=== PATIENT | female | born 1990 | race Caucasian/White ===

== ENCOUNTER 2022-09-17 09:24 | Observation (INO) ==
[2022-09-17 10:11] LABS: Basophils # (auto) 0.07 K/uL (0-0.2); Basophils % (auto) 0.8 %; Eosinophils % (auto) 1.2 %; Hemoglobin 13.9 g/dl (12.0-16.0); Immature Granulocytes % (auto) 1.2 %; Lymphocytes # (auto) 2.61 K/uL (1.2-3.4); Lymphocytes % (auto) 31.7 %; Mean Corpuscular Hemoglobin 30.1 pg (25.0-34.0); Mean Corpuscular Hgb Conc 33.9 g/dL (32.0-36.0); Mean Corpuscular Volume 88.7 fL (80.0-100.0); Mean Platelet Volume 9.9 fL (9.4-12.3); Monocytes # (auto) 0.65 K/uL (0.24-0.82); Monocytes % (auto) 7.9 %; Neutrophils # (auto) 4.71 K/uL (1.4-6.5); Neutrophils % (auto) 57.2 %; Platelet Count 395 K/uL (130-400); RDW Coefficient of Variation 12.5 % (11.5-14.5); RDW Standard Deviation 40.7 fL (36.4-46.3); Red Blood Count 4.62 M/uL (3.93-5.22); White Blood Count 8.24 K/ul (4.8-10.8)
[2022-09-17 10:23] LABS: Alanine Aminotransferase 14 U/L (7-52); Albumin Globulin Ratio 1.1 (0.9-2); Albumin Level 4.4 gm/dl (3.4-5.0); Alkaline Phosphatase 87 U/L (34-104); Anion Gap 7 (3-11); Aspartate Aminotransferase 18 U/L (13-39); BUN Creatinine Ratio 15.9 (10-20); Bilirubin,Total 0.5 mg/dl (0.2-1.0); Blood Urea Nitrogen 11 mg/dl (6-23); Calcium 9.8 mg/dl (8.5-10.1); Carbon Dioxide 24 mmol/L (21-32); Chloride 104 mmol/L (98-107); Creatinine Clr Calc Pharmacy 102.9 ml/min; Est GFR (African American) 135.4 ml/min; Est GFR (Non-African American) 116.8 ml/min; Globulin 3.9 gm/dl (2.5-4.0); Glucose 87 mg/dl (70-99(Fasting)); Sodium 135 mmol/L (136-145); Total Protein 8.3 gm/dl (6.0-8.3)
[2022-09-17 10:28] LABS: Troponin I High Sensitivity < 2.3 pg/ml (0-14)
--- NOTE | 2022-09-17 11:46 | XRay Report ---
XR chest 1V portable HISTORY: Dysrhythmia COMPARISON: None. FINDINGS: The lungs are clear. Cardiac silhouette is normal in size. No pleural effusions. No pneumot horax. IMPRESSION: No acute process. ACT 112: Negative or not required by law. Electronically signed by: Lucas Champagne M.D. 09/17/2022 11:45 AM
--- NOTE | 2022-09-17 14:10 | History & Physical Report ---
Date of Service September 17, 2022 Assessment & Plan (1) Sinus pause: (2) Recurrent syncope: Plan: Admit to telemetry Patient presenting by referral of outpatient cardiology after ZIO monitor showed a 19-second pause on 09/02 that was associated with a syncopal event while getting blood drawn. ZIO also showed other shorter pauses and bradycardia. Patient reports a longstanding history of syncopal events associated blood draws, tattoos, injections etc. These all seem to be vasovagal nature. In the ED, patient has remained in sinus rhythm. Discussed with cardiology, patient may need atrial pacemaker Echo Check Lyme for completeness (3) Migraines: Plan: Recently seen by neurology as an outpatient for migraine work-up Had an EEG that was unremarkable Brain MRI scheduled for October, will obtain during hospitalization prior to patient's potential pacemaker placement (4) DVT prophylaxis: Plan: SCDs History of Present Illness Chief Complaint: Recurrent syncope Primary Care Provider: Nikolay Ann DO 31-year-old female with PMH asthma, allergies, migraines, anxiety, depression, and other problems listed below who presents the ED by referral of cardiology for evaluation of recurrent syncope and sinus pauses noted on outpatient ZIO monitor. Patient reports episodes of passing out throughout her entire life. Syncopal events have always been associated with blood draws, tattoos, receiving injections. Patient recently establish care with a PCP who ordered a ZIO monitor for further evaluation. While patient was having blood drawn a couple of weeks ago, she was wearing the ZIO monitor which showed a 19-second pause associated with that syncopal event. ZIO monitor report also showed sinus bradycardia and shorter pauses. No further syncopal event since that time. Patient denies chest pain, palpitations. Denies any other recent illnesses, fevers, chills. No shortness of breath. Denies abdominal pain, nausea, vomiting, diarrhea. No urinary symptoms. In the ED, patient is hemodynamically stable and labs are unremarkable. Home Medications Medication Instructions Recorded Confirmed Type PNV 153-FA 400 mcg-om3 35 mg-dha 1 tab PO DAILY 09/17/22 09/17/22 History 25 mg-epa 5 mg-fish oil chew tablet ( Gummies) diphenhydramine HCl 25 mg tablet 25 mg PO HS 09/17/22 09/17/22 History (Benadryl Allergy) loratadine-pseudoephedrine ER 10 1 tab PO DAILY 09/17/22 09/17/22 History mg-240 mg tablet,extended [id number] magnesium 200 mg tablet 200 mg PO DAILY 09/17/22 09/17/22 History riboflavin (vitamin B2) 400 mg 400 mg PO DAILY 09/17/22 09/17/22 History tablet sumatriptan succinate 50 mg tablet 50 mg PO UD PRN headache 09/17/22 09/17/22 History Past Med/Surg History Medical History Allergies Anxiety Asthma Depression Migraines Recurrent syncope Surgical History H/O wisdom tooth extraction Family History Mother Diabetes Lupus Social History Smoking Status: Never smoker Hx Alcohol Use: Yes (2 drinks per week) Preferred Language: Italian Feels Safe at Home: Yes Review of Systems Review of Systems: ROS per HPI, all other systems reviewed and negative Physical Exam Constitutional: WD/WN, vitals as above Eyes: PERRL, conjunctivae normal, anicteric sclerae ENMT: external ear and nose normal, oropharynx normal Respiratory: normal respiratory effort, lungs clear to auscultation Cardiovascular: Rate/Rhythm: regular rate and regular rhythm Vessels: normal peripheral pulses Extremities: no edema Gastrointestinal (Abdomen): normal bowel sounds, soft, nontender, no hepatosplenomegaly Musculoskeletal: no cyanosis or clubbing, extremities motor strength 5/5 Skin: no rashes, warm and dry Neurologic: PERRL, EOMI, accommodation nl, no face palsy, no dysarthria Psychiatric: A+Ox3, euthymic affect Results & Data Results & Data ([facility]) Vital Signs (Past 12 Hours) Vital Signs Temp Pulse Resp BP Pulse Ox O2 Del Method 09/17/22 11:30 80 20 120/61 96 09/17/22 11:00 90 20 97 09/17/22 10:30 94 H 20 97 09/17/22 10:00 101 H 18 97 09/17/22 09:50 94 H 14 99 09/17/22 09:50 126/84 09/17/22 09:44 107 H 17 09/17/22 09:26 Room Air 09/17/22 09:26 36.6 C 93 H 16 121/94 99 Laboratory Results Short CBC 09/17/22 Range/Units Unknown WBC 8.24 (4.8-10.8) K/ul Hgb 13.9 (12.0-16.0) g/dl Hct 41.0 (34.1-44.9) % Plt Count 395 (130-400) K/uL BMP 09/17/22 Unknown Sodium 135 L Potassium 4.0 Chloride 104 Carbon Dioxide 24 BUN 11 Creatinine 0.69 Glucose 87 Calcium 9.8 Liver Function 09/17/22 Range/Units Unknown Total Bilirubin 0.5 (0.2-1.0) mg/dl AST 18 (13-39) U/L ALT 14 (7-52) U/L Alkaline Phosphatase 87 (34-104) U/L Albumin 4.4 (3.4-5.0) gm/dl Diagnostic Findings Chest X-Ray 09/17/22 10:01 XR chest 1V portable HISTORY: Dysrhythmia COMPARISON: None. FINDINGS: The lungs are clear. Cardiac silhouette is normal in size. No pleural effusions. No pneumothorax. IMPRESSION: No acute process. ACT 112: Negative or not required by law. Electronically signed by: Lucas Champagne M.D. 09/17/2022 11:45 AM Code Status & VTE Plan VTE Prophylaxis Plan VTE Prophylaxis will be ordered: Yes Supervising Physician Co-Signing Physician Notes Patient was seen and examined at bedside. The patient is a 31-year-old woman with PMH asthma, allergies, migraines, anxiety who presented after referral from PCP for cardiac pauses on Zio patch in the setting of history of syncopal episodes. She typically has syncope related to blood draws, etc, most recently 2 weeks prior to admission. Zio patch placed after this most recent episode with capturing of up to 17 second pauses that were asymptomatic. Given history, Cardiology evaluated and are recommending PPM placement. Patient to be admitted for potential PPM in the AM 09/18/2022. Will also get MRI brain as part of her outpatient migraine work up to ease work up now that patient will get PPM. Physical exam was unremarkable with cardiac exam with RRR, lungs CTAB, no LE edema, abdomen soft and nontender with present BS. She was admitted to telemetry and will NPO midnight for PPM tomorrow 09/18/2022. I discussed the case with Amparo Kramer and agree with rest of plan as outlined in the H&P above.
--- NOTE | 2022-09-17 14:28 | Cardiology Consultation ---
Date of Consultation September 17, 2022 Assessment & Plan (1) Sinus pause: (2) Recurrent syncope: (3) Migraines: Plan 31-year-old female with longstanding history of recurrent syncope pattern suggestive of vasovagal events but with profound complaints. Episodes of syncope usually lasting 10 to 20 seconds. Patient notes he is unable to avoid events when occur but can anticipate they are happening. Zio patch performed demonstrates significant sinus pause in association with laboratory draw and symptomatic syncope. Plan: Complete MRI ordered to exclude increased intracranial pressure Echocardiogram ordered to assess mitral valve murmur Continue telemetry Will likely require pacemaker insertion to manage symptoms given significant pauses present. Depending on results of studies will consider this admission versus electively as out History of Present Illness Reason for Consultation: Abnormal Zio patch with extended pause Requesting Physician: Dr. Ann History of Present Illness Patient is a 31-year-old female referred with issues as noted 1. Abnormal Zio patch with extended sinus pauses 2. Longstanding history of recurrent syncope dating back to childhood 3. Heart murmur 4. Chronic migrainous disease 5. Dermatographism Patient presents for ER evaluation after results of Zio patch obtained. Patient recently seen in the outpatient setting for symptoms of worsening migraine as well as chronic syncopal events. She describes syncopal events as proceeded by oral oftentimes precipitated by noxious stimuli i.e. lab draws, tattoos, pain. Historically has difficulty with easy flushing and warmth. Episodes are described as vagal as a child. Carries a history of past murmur No recent fevers chills or unexplained infections. Had been referred for planned MRI due to chronic headaches and migraine complaints. No bleeding difficulties. Weight has been generally stable recently. Takes loratadine/pseudoephedrine and diphenhydramine for decongestion concerns. Trialed on duloxetine recently and discontinued Zio patch personally reviewed. Patient experienced a 19-second pause following laboratory blood draw patient with patient symptomatic with syncopal event of approximately 20 seconds per her description. She notes no exertional relationship to her complaints. Notes no injuries as she has been conditioned to seek supine position when episodes occur. No history of prior structural heart disease but not evaluated Denies history of TIA or stroke. Appetite is generally good. No bleeding difficulties. No possibility of Home Medications Medication Instructions Recorded Confirmed Type PNV 153-FA 400 mcg-om3 35 mg-dha 1 tab PO DAILY 10/27/22 10/27/22 History 25 mg-epa 5 mg-fish oil chew tablet ( Gummies) diphenhydramine HCl 25 mg tablet 25 mg PO HS 09/17/22 09/17/22 History (Benadryl Allergy) loratadine-pseudoephedrine ER 10 1 tab PO DAILY 09/17/22 09/17/22 History mg-240 mg tablet,extended [id number] magnesium 200 mg tablet 200 mg PO DAILY 09/17/22 09/17/22 History riboflavin (vitamin B2) 400 mg 400 mg PO DAILY 09/17/22 09/17/22 History tablet sumatriptan succinate 50 mg tablet 50 mg PO UD PRN headache 09/17/22 09/17/22 History Patient History Medical History Allergies Anxiety Asthma Depression Migraines Recurrent syncope Surgical History H/O wisdom tooth extraction Family History Mother Diabetes Lupus Social History Smoking Status: Never smoker Hx Alcohol Use: Yes (2 drinks per week) Preferred Language: Khmer Feels Safe at Home: Yes Review of Systems Review of Systems: All systems reviewed & are unremarkable except as noted in HPI & below Physical Exam Constitutional: + thin; no acute distress Eyes: PERRL, conjunctivae normal, anicteric sclerae ENMT: external ear and nose normal, oropharynx normal Neck: trachea midline, no thyromegaly Respiratory: normal respiratory effort, lungs clear to auscultation Cardiovascular: Rate/Rhythm: regular rate, regular rhythm and + tachycardic Heart Sounds: normal S1, normal S2, + click and + murmur (Grade 2/6 to 3/6 holosystolic murmur greatest at apex) Vessels: normal carotid upstroke and femoral pulses present; no JVD Extremities: no edema Gastrointestinal (Abdomen): normal bowel sounds, soft, nontender, no hepatosplenomegaly Musculoskeletal: no cyanosis or clubbing, extremities motor strength 5/5 Skin: + erythema (Dermatographia ) Neurologic: PERRL, EOMI, accommodation nl, no face palsy, no dysarthria Psychiatric: A+Ox3, euthymic affect Results & Data ([facility]) Vital Signs (Past 12 Hours) Vital Signs Temp Pulse Resp BP Pulse Ox O2 Del Method 09/17/22 11:30 80 20 120/61 96 09/17/22 11:00 90 20 97 09/17/22 10:30 94 H 20 97 09/17/22 10:00 101 H 18 97 09/17/22 09:50 94 H 14 99 09/17/22 09:50 126/84 09/17/22 09:44 107 H 17 09/17/22 09:26 Room Air 09/17/22 09:26 36.6 C 93 H 16 121/94 99 Laboratory Results Laboratory Results - last 24 hr 09/17/22 09/17/22 09/17/22 10:01 Unknown Unknown WBC 8.24 RBC 4.62 Hgb 13.9 Hct 41.0 MCV 88.7 MCH 30.1 MCHC 33.9 RDW Std Deviation 40.7 RDW Coeff of Sim 12.5 Plt Count 395 MPV 9.9 Immature Gran % (Auto) 1.2 Neut % (Auto) 57.2 Lymph % (Auto) 31.7 [place]wood % (Auto) 7.9 Eos % (Auto) 1.2 Baso % (Auto) 0.8 Neut # (Auto) 4.71 Lymph # (Auto) 2.61 [place]wood # (Auto) 0.65 Eos # (Auto) 0.10 Baso # (Auto) 0.07 Immature Gran # (Auto) 0.10 H Sodium 135 L Potassium 4.0 Chloride 104 Carbon Dioxide 24 Anion Gap 7 BUN 11 Creatinine 0.69 Est Cr Clr Drug Dosing 102.9 Est GFR ( Amer) 135.4 Est GFR (Non-Af Amer) 116.8 BUN/Creatinine Ratio 15.9 Glucose 87 Calcium 9.8 Magnesium 2.0 Total Bilirubin 0.5 AST 18 ALT 14 Alkaline Phosphatase 87 Troponin I High Sens < 2.3 Total Protein 8.3 Albumin 4.4 Globulin 3.9 Albumin/Globulin Ratio 1.1 TSH POC Ur Test NEG Lyme Disease IgG Ab Lyme Disease IgM Ab SARS-CoV-2, RNA, NAAT 09/17/22 09/17/22 09/17/22 Unknown Unknown Unknown WBC RBC Hgb Hct MCV MCH MCHC RDW Std Deviation RDW Coeff of Sim Plt Count MPV Immature Gran % (Auto) Neut % (Auto) Lymph % (Auto) Haywood % (Auto) Eos % (Auto) Baso % (Auto) Neut # (Auto) Lymph # (Auto) Haywood # (Auto) Eos # (Auto) Baso # (Auto) Immature Gran # (Auto) Sodium Potassium Chloride Carbon Dioxide Anion Gap BUN Creatinine Est Cr Clr Drug Dosing Est GFR ( Amer) Est GFR (Non-Af Amer) BUN/Creatinine Ratio Glucose Calcium Magnesium Total Bilirubin AST ALT Alkaline Phosphatase Troponin I High Sens Total Protein Albumin Globulin Albumin/Globulin Ratio TSH 3.098 POC Ur Test Lyme Disease IgG Ab Pending Lyme Disease IgM Ab Pending SARS-CoV-2, RNA, NAAT NEGATIVE
[2022-09-17] MEDS ORDERED: ACETAMINOPHEN 325 MG TAB PO PRN (14:30)
--- NOTE | 2022-09-17 14:47 | Emergency Department Note ---
History of Present Illness General Chief Complaint: Arrhythmia/Palpitations Stated Complaint: IRREGULAR HEARTBEAT Time Seen by Provider: 09/17/22 09:40 Source: patient Mode of arrival: ambulatory Limitations: no limitations History of Present Illness Provider Complaint: + irregular heart beat (long pause on Zio Patch) Onset (ago): day(s) Duration: + Constant Severity: similar to previous episodes Context: + other (syncope usually during medical ) HPI narrative: This patient is a 31-year-old female presents emergency department with complaints of a fluctuating heart rate. She states she felt her palpitations and checked her heart rate it was in the 130s. She turned on her Fitbit and rec hecked it for short while later noted the heart rate to be 55. she is unable to explain while fluctuations in heart rate. She did see cardiology this week who ordered a Zio patch. Patient was notified by cardiology today that she had a prolonged pause in her rhythm and was referred to the emergency department. Home Medications Medication Instructions Recorded Confirmed Type PNV 153-FA 400 mcg-om3 35 mg-dha 1 tab PO DAILY 09/17/22 09/22/22 History 25 mg-epa 5 mg-fish oil chew tablet ( Gummies) diphenhydramine HCl 25 mg tablet 25 mg PO HS 09/17/22 09/22/22 History (Benadryl Allergy) loratadine-pseudoephedrine ER 10 1 tab PO DAILY 09/17/22 09/22/22 History mg-240 mg tablet,extended [id number] magnesium 200 mg tablet 200 mg PO DAILY 09/17/22 09/22/22 History riboflavin (vitamin B2) 400 mg 400 mg PO DAILY 09/17/22 09/22/22 History tablet sumatriptan succinate 50 mg tablet 50 mg PO UD PRN headache 09/17/22 09/22/22 History duloxetine 30 mg capsule,delayed 30 mg PO DAILY 09/22/22 09/22/22 History release melatonin 3 mg capsule 3 mg PO HS PRN Insomnia 09/22/22 09/22/22 History Allergies Allergy/AdvReac Type Severity Reaction Status Date / Time No Known Allergies Allergy Verified 09/22/22 09:09 Past Med/Surg History Medical History Allergies Anxiety Asthma Depression Migraines Recurrent syncope Surgical History H/O wisdom tooth extraction Family History Mother Diabetes Lupus Social History Smoking Status: Never smoker Second Hand Exposure: No; Hx Alcohol Use: Yes Alcohol type: beer Hx Substance Use: No Preferred Language: Occitan Communication Ability: Effective Supervisor Finishing Required: No Beliefs That Will Affect Care: None Current Living Situation: Spouse Other Information That Helps Us Care for You: No Feels Safe at Home: Yes Safety Concerns: Feels Safe At This Time Assistive Devices: None Review of Systems See HPI for pertinent positives & negatives. and A total of 10 systems reviewed and were otherwise negative Constitutional: + sweats and + anorexia Eyes: + diplopia, + eye pain and + seeing flashes Physical Exam Vital Signs: Vital Signs - 24 hr 09/17/22 09:26 09/17/22 09:26 09/17/22 09:44 Temperature 36.6 C Temperature Source Temporal Artery Sc an Pulse Rate 93 H 107 H Pulse Rate from Sp O2 Sensor Respiratory Rate 16 17 Blood Pressure 121/94 Blood Pressure Leticia n 103 Pulse Oximetry 99 Oxygen Delivery Me thod Room Air Sepsis Recent Feve r Within 48 Hours No Sepsis New/Unexpla ined Change in Men karl Status No Sepsis Action Take n by Nursing No Action Required Pulse Oximetry Pos t Tiitration 98 09/17/22 09:50 09/17/22 09:50 09/17/22 10:00 Temperature Temperature Source Pulse Rate 94 H 101 H Pulse Rate from Sp O2 Sensor 94 H 98 H Respiratory Rate 14 18 Blood Pressure 126/84 Blood Pressure Leticia n 98 Pulse Oximetry 99 97 Oxygen Delivery Me thod Sepsis Recent Feve r Within 48 Hours Sepsis New/Unexpla ined Change in Men karl Status Sepsis Action Take n by Nursing Pulse Oximetry Pos t Tiitration 09/17/22 10:30 09/17/22 11:00 09/17/22 11:30 Temperature Temperature Source Pulse Rate 94 H 90 80 Pulse Rate from Sp O2 Sensor 97 H 86 84 Respiratory Rate 20 20 20 Blood Pressure 120/61 Blood Pressure Leticia n 80 Pulse Oximetry 97 97 96 Oxygen Delivery Me thod Sepsis Recent Feve r Within 48 Hours Sepsis New/Unexpla ined Change in Men karl Status Sepsis Action Take n by Nursing Pulse Oximetry Pos t Tiitration Physical Exam: Vital signs reviewed. General: Well-appearing 31-year-old female, in no significant distress. HEENT: No scleral icterus, PERRLA, neck supple. Atraumatic. Cardiovascular: Regular rate and rhythm, no extra sounds. Pulmonary: Clear to auscultation bilaterally, normal work of breathing. Abdomen: Soft, nontender, nondistended, positive bowel sounds. Musculoskeletal: Atraumatic, no peripheral edema. Neurologic: Patient awake alert and oriented x 3, cranial nerves II through XII are grossly intact. Speech is clear. Equal strength in all 4 extremities. Skin: Warm, dry, no rash Course Administered Medications Discontinued Medications Diphenhydramine HCl (Diphenhydramine Capsule 25 Mg Cap) 25 mg PO NOW ONE Stop: 09/17/22 21:39 Last Admin: 09/17/22 21:47 Dose: 25 mg Documented By: NELA Gadobutrol (Gadobutrol 65ml Vial) 5 ml IV ONCE ONE Stop: 09/17/22 17:12 Last Admin: 09/17/22 16:50 Dose: 5 ml Documented By: PAUL Medical Decision Making Differential Diagnosis Premature contractions, electrolyte abnormality, cardiac dysrhythmia, thyroid dysfunction, pulmonary embolism, infection, gastrointestinal, as well as other pathologies. Medical Records Attestation: I reviewed the patient's medical records. Home Medications Current Medication List: was personally reviewed by me Laboratory Data Attestation: I reviewed the patient's lab results. Result diagrams: 09/17/22 Unknown 09/17/22 Unknown Lab Results 09/17/22 Range/Units 10:01 POC Ur Test NEG (NEG) Imaging Data Radiologist's Impression: Chest X-Ray 09/17/22 10:01 XR chest 1V portable HISTORY: Dysrhythmia COMPARISON: None. FINDINGS: The lungs are clear. Cardiac silhouette is normal in size. No pleural effusions. No pneumothorax. IMPRESSION: No acute process. ACT 112: Negative or not required by law. Electronically signed by: Lucas Champagne M.D. 09/17/2022 11:45 AM Blood Pressure Blood Pressure Findings: Normal blood pressure Blood Pressure Disposition: did not require urgent referral MDM Narrative Patient evaluated. No significant distress. IV access was obtained laboratory work was drawn. Patient was placed on compliance monitor noted to be in sinus rhythm. No prolonged pauses were appreciated in her brief stay in the ED. [facility] cardiology, Dr. Kaiser did present to the emergency department and explained to the patient's will require a pacemaker based on what they found with her long-term monitoring. She is have recurrent syncope and sinus arrest. The [facility] hospitalist service has been contacted for admission the patient will need further work-up such as echocardiogram. Impression & Plan Recurrent syncope, Sinus pause Discharge Plan Visit Data Chief Complaint: Arrhythmia/Palpitations Stated Complaint: IRREGULAR HEARTBEAT ED Provider: Tabby Perry Discharge Problem: Recurrent syncope, Sinus pause Patient Disposition: Admitted As Inpatient Discharge Instructions Interventions: ED Discharge Assessment Last Done: 09/17/22 18:16
[2022-09-17 15:01] LABS: Lyme Ab IgG w/WB Rflx Negative (Negative); Lyme Ab IgM w/WB Rflx Negative (Negative)
[2022-09-17] MEDS ORDERED: GADOBUTROL 65ML VIAL IV ONE (17:11)
--- NOTE | 2022-09-17 17:23 | Magnetic Resonance Report ---
MRI OF THE BRAIN COMBO CLINICAL HISTORY: Migraine headache. COMPARISON STUDY: No priors. TECHNIQUE: MRI of the brain was performed utilizing various T1 and T2-weighted sequences in the axial , sagittal, and coronal planes. Contrast-enhanced sequences were acquired following the administratio n of 5 cc of Gadavist. FINDINGS: Brain parenchyma: The brain parenchyma is normal in appearance. There is no hemorrhage or mass effect . There is no restricted diffusion to suggest acute ischemia. No enhancing mass lesion is identified on the postcontrast images. Epperson-white matter differentiation is preserved. No extra-axial fluid berta ection is seen. The cerebellar tonsils are normal in configuration. Ventricles, sulci, and cisterns: Normal in configuration. Pituitary and sella: Unremarkable. Intracranial vasculature: Normal flow voids are maintained at the skull base. Orbits: The bony orbits are grossly intact. Orbital contents are normal in appearance. Sinuses and mastoids: Clear. Calvarium: Unremarkable. Cervical cord: Partially visualized cervical spinal cord is normal in morphology and signal intensity . IMPRESSION: No intracranial abnormality is identified. ACT 112: Negative or not required by law. Electronically signed by: Werner Mcarthur M.D. 09/17/2022 5:21 PM
[2022-09-17] MEDS ORDERED: diphenhydrAMINE Capsule 25 MG CAP PO ONE (21:38)
--- NOTE | 2022-09-18 11:05 | Cardiology Progress Note ---
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 Episodes of syncope usually lasting 10 to 20 seconds. Patient notes he is unable to avoid events when occur but can anticipate they are happening. Zio patch performed demonstrates significant sinus pause in association with laboratory draw and symptomatic syncope. Plan: Complete MRI ordered to exclude increased intracranial pressure Echocardiogram ordered to assess mitral valve murmur Continue telemetry Will likely require pacemaker insertion to manage symptoms given significant pauses present. Depending on results of studies will consider this admission versus electively as out 09/18/2022: No further arrhythmias overnight with patient ambulatory, hemodynamically stable. MRI without adverse findings Echocardiogram is consistent with rheumatic valvular disease mild to moderate involving the mitral and aortic valve with moderate mitral insufficiency and mild aortic insufficiency Recommendations: We will make arrangements dual-chamber pacemaker insertion. Patient may be discharged to return for outpatient procedure tentatively scheduled Wednesday. Patient will be contacted through EP office Patient avoid noxious stimuli and usual inciting events of vasovagal complaints Discussed findings in detail with patient No medication changes made. Would recommend SBE prophylaxis Admission and Anticipated Discharge Date Admission Date: September 17, 2022 Subjective Patient seen and examined, chart, medications, telemetry reviewed. No events or issues overnight. Patient ambulatory in room without difficulty. No dizziness or lightheadedness. No arrhythmias on telemetry. Physical Exam Constitutional: + thin; no acute distress Eyes: PERRL, conjunctivae normal, anicteric sclerae ENMT: external ear and nose normal, oropharynx normal Neck: trachea midline, no thyromegaly Respiratory: normal respiratory effort, lungs clear to auscultation Cardiovascular: Rate/Rhythm: regular rate, regular rhythm and + tachycardic Heart Sounds: normal S1, normal S2, + click and + murmur (Grade 2/6 holosystolic murmur greatest at apex) Vessels: normal carotid upstroke and femoral pulses present; no JVD Extremities: no edema Gastrointestinal (Abdomen): normal bowel sounds, soft, nontender, no hepatosplenomegaly Musculoskeletal: no cyanosis or clubbing, extremities motor strength 5/5 Skin: + erythema (Dermatographia ) Neurologic: PERRL, EOMI, accommodation nl, no face palsy, no dysarthria Psychiatric: A+Ox3, euthymic affect Results & Data ([facility]) Vital Signs (Past 12 Hours) Vital Signs Temp Pulse Pulse Resp BP Pulse Ox O2 Del Method 09/18/22 07:45 82 09/18/22 07:03 36.7 C 81 18 111/76 98 Room Air 09/18/22 03:51 36.7 C 86 14 104/68 96 Room Air
--- NOTE | 2022-09-18 11:24 | Discharge Summary ---
Date of Service September 18, 2022 Admission HPI Per Admitting Provider 31-year-old female with PMH asthma, allergies, migraines, anxiety, depression, and other problems listed below who presents the ED by referral of cardiology for evaluation of recurrent syncope and sinus pauses noted on outpatient ZIO monitor. Patient reports episodes of passing out throughout her entire life. Syncopal events have always been associated with blood draws, tattoos, receiving injections. Patient recently establish care with a PCP who ordered a ZIO monitor for further evaluation. While patient was having blood drawn a couple of weeks ago, she was wearing the ZIO monitor which showed a 19-second pause associated with that syncopal event. ZIO monitor report also showed sinus bradycardia and shorter pauses. No further syncopal event since that time. Patient denies chest pain, palpitations. Denies any other recent illnesses, fevers, chills. No shortness of breath. Denies abdominal pain, nausea, vomiting, diarrhea. No urinary symptoms. In the ED, patient is hemodynamically stable and labs are unremarkable. Admission Exam Per Admitting Provider Constitutional: WD/WN, vitals as above Eyes: PERRL, conjunctivae normal, anicteric sclerae ENMT: external ear and nose normal, oropharynx normal Respiratory: normal respiratory effort, lungs clear to auscultation Cardiovascular: Rate/Rhythm: regular rate and regular rhythm Vessels: normal peripheral pulses Extremities: no edema Gastrointestinal (Abdomen): normal bowel sounds, soft, nontender, no hepatosplenomegaly Musculoskeletal: no cyanosis or clubbing, extremities motor strength 5/5 Skin: no rashes, warm and dry Neurologic: PERRL, EOMI, accommodation nl, no face palsy, no dysarthria Psychiatric: A+Ox3, euthymic affect Principal Diagnosis syncope, bradycardia Discharge Exam Constitutional: WD/WN, vitals as above Eyes: PERRL, conjunctivae normal, anicteric sclerae ENMT: external ear and nose normal, oropharynx normal Respiratory: normal respiratory effort, lungs clear to auscultation Cardiovascular: Rate/Rhythm: regular rate and regular rhythm Vessels: normal peripheral pulses Extremities: no edema Gastrointestinal (Abdomen): normal bowel sounds, soft, nontender, no hepatosplenomegaly Musculoskeletal: no cyanosis or clubbing, extremities motor strength 5/5 Skin: no rashes, warm and dry Neurologic: PERRL, EOMI, accommodation nl, no face palsy, no dysarthria Psychiatric: A+Ox3, euthymic affect Discharge Data Allergies Allergy/AdvReac Type Severity Reaction Status Date / Time No Known Allergies Allergy Unverified 09/17/22 21:50 Consultations 09/17/22 13:16 ED Decision to Admit Stat 09/17/22 14:30 Consult Cardiology Routine Ordered Studies 09/17/22 13:08 MRI Brain [MR brain wo/w con] Routine Hospital Course (1) Sinus pause: (2) Recurrent syncope: Admit to telemetry Patient presenting by referral of outpatient cardiology after ZIO monitor showed a 19-second pause on 09/02 that was associated with a syncopal event while getting blood drawn. ZIO also showed other shorter pauses and bradycardia. Patient reports a longstanding history of syncopal events associated blood draws, tattoos, injections etc. These all seem to be vasovagal nature. In the ED, patient has remained in sinus rhythm. Discussed with cardiology, patient may need atrial pacemaker - plan for outpatient PPM placement per Cardiology, tentatively 09/22/2022 Echo - with evidence of rheumatic disease present Check Lyme - negative (3) Migraines: Recently seen by neurology as an outpatient for migraine work-up Had an EEG that was unremarkable Brain MRI scheduled for October - MRI done here that showed no abnormalities (4) DVT prophylaxis: SCDs Total Time Total Time Spent Total Time Spent (In Minutes): 25 Total Time Includes: Examination of the Patient, Discharge Planning, Medication Reconciliation and Communication With Other Providers Discharge Plan Discharge Items Patient Disposition: Home - Self-Care Reason For Visit: SYNCOPE,BRADYCARDIA Discharge Diagnosis: syncope, bradycardia Activity: Resume your previous activity Non-emergency contact: Primary Care Provider and [employer] Call non-emergency contact if: you have any medication questions and your sympt oms worsen Follow-up/Referrals: Jeronimo Kaiser MD [Physician] - Nikolay Ann DO [Primary Care Provider] - (Date & Time 09/24/2022 11:20 AM Provider Nikoaly Ann DO Department Family Practice [facility] ) Diet: Regular Addtl Attending Provider Instructions: You were admitted due to symptomatic and asymptomatic bradycardia/cardiac pauses on Zio patch. You were evaluated by Cardiology and plan is to have Permanent pacemaker placed. Initially to have pacemaker for 09/18/2022 but subsequent plan is to have you come back as outpatient 09/22/2022 for the pacemaker. If you should have another episode of passing out, you should return to the hospital. You also had an MRI brain that showed no abnormalities. Pending Studies at Discharge: No Stand-Alone Forms: [facility], Smoking Cessation Medications and DC Order Prescriptions: Continued sumatriptan succinate 50 mg tablet 50 mg PO UD PRN (Reason: headache) loratadine-pseudoephedrine 10-240 mg Tablet Extended Release 24 Hr 1 tab PO DAILY diphenhydramine HCl [Benadryl Allergy] 25 mg Tablet 25 mg PO HS magnesium 200 mg Tablet 200 mg PO DAILY riboflavin (vitamin B2) 400 mg Tablet 400 mg PO DAILY Gummies 400 mcg-35 mg- 25 mg-5 mg Tablet,Chewable 1 tab PO DAILY Discharge Orders: Discharge Order (Routine); Ordered 09/18/22 Ordered By: Driss Johnson Admission Data Admit Date/Time: 09/17/22 12:28 Attending Provider: Driss Johnson Admit Provider: Driss Johnson Primary Care Provider: Nikolay Ann Other Providers: Driss Johnson ; Jeronimo Kaiser
--- NOTE | 2022-09-19 05:50 | Electrocardiogram Report ---
Test Reason : Blood Pressure : / mmHG Vent. Rate : 105 BPM Atrial Rate : 105 BPM P-R Int : 124 ms QRS Dur : 076 ms QT Int : 342 ms P-R-T Axes : 078 066 061 degrees QTc Int : 452 ms Poor data quality, interpretation may be adversely affected Sinus tachycardia Possible Left atrial enlargement Borderline ECG No previous ECGs available Confirmed by Fabian Cedeño ([id number]) on 09/19/2022 5:50:16 AM Referred By: Provider Outside Confirmed By:Fabian Cedeño
--- NOTE | 2022-09-19 23:03 | Electrocardiogram Report ---
Test Reason : Blood Pressure : / mmHG Vent. Rate : 084 BPM Atrial Rate : 084 BPM P-R Int : 142 ms QRS Dur : 082 ms QT Int : 378 ms P-R-T Axes : 073 056 061 degrees QTc Int : 446 ms Normal sinus rhythm Normal ECG When compared with ECG of 17-SEP-2022 09:43, No significant change was found Confirmed by Fabian Cedeño ([id number]) on 09/19/2022 11:02:31 PM Referred By: Provider Outside Confirmed By:Fabian Cedeño
== END 2022-09-18 11:56 | disposition home or self-care (01) | DRG 310 ==
LOC: ED 09:24 → INTOOBSV 12:28 → EDINP 12:28 → 2W 18:58 → 4W 21:32